=== PATIENT | female | born 1960 | race Caucasian/White ===

== ENCOUNTER 2018-03-28 09:28 | Outpatient (CLI) | payer MEDICARE | END 2018-03-28 09:29 | disposition home or self-care (01) | LOC: BICMAMMO 09:28 | PROVIDERS: ATTEND Internal Medicine | DX: Z12.31 Encounter for screening mammogram for malignant neoplasm of breast (principal); N64.89 Other specified disorders of breast | CPT/HCPCS: 77063; 77067 ==

== ENCOUNTER 2018-04-02 12:24 | Outpatient (CLI) | payer MEDICARE | END 2018-04-02 12:25 | disposition home or self-care (01) | LOC: BICMAMMO 12:24 | PROVIDERS: ATTEND Internal Medicine | DX: R92.2 Inconclusive mammogram (principal) | CPT/HCPCS: 76642; 77065; G0279 ==

== ENCOUNTER 2018-09-10 10:54 | Outpatient (CLI) | payer MEDICARE ==
--- NOTE | 2018-09-10 12:58 | RAD ---
CERVICAL SPINE THREE VIEWS: HISTORY: Neck pain. FINDINGS: Vertebral body heights are maintained. There is minimal degenerative spondylolisthesis at the C3-C4 level. There is disk space narrowing and osteophytosis, most pronounced at the C5-C6 and C6-C7 level s. The cervicothoracic junction is intact. No acute fracture or dislocation. IMPRESSION: Degenerative changes of the cervical spine. No acute osseous abnormalities are demonstrated. POS: JAVIER
== END 2018-09-10 10:55 | disposition home or self-care (01) ==
LOC: BICRAD 10:54
PROVIDERS: ATTEND Internal Medicine
DX: M47.22 Other spondylosis with radiculopathy, cervical region (principal)
CPT/HCPCS: 72040

== ENCOUNTER 2018-09-22 08:09 | Outpatient (CLI) | payer MEDICARE ==
--- NOTE | 2018-09-22 11:02 | MRI ---
MRI CERVICAL SPINE: Date: 09-22-18 Provided Clinical History: Cervical radiculopathy. FINDINGS: There is a slight anterolisthesis of C7 on T1. Cervical alignment appears otherwise normal. Vertebral body heights appear preserved. No focal concerning regional marrow signal abnormality is evident. Th e visualized posterior fossa, cervical medullary junction and cervical spinal cord demonstrate normal signal and morphology. C2-3: There is no significant central canal or foraminal narrowing apparent. C3-4: There is no significant central canal or foraminal narrowing apparent. C4-5: Mild disc degenerative changes with bilateral uncinate process hypertrophy. Mild bilateral fora amari narrowing. No significant central canal stenosis apparent. C5-6: There is disc space height loss and endplate degenerative change with a broad based disc osteop hyte complex. There is effacement of the ventral subarachnoid space without cord contact or deformity . There is at least moderate left foraminal narrowing. There is mild right foraminal narrowing. C6-7: There is disc space height loss and endplate degenerative change with a broad based disc osteop hyte complex. There is effacement of the ventral subarachnoid space without cord contact or deformity . There is a mild/moderate bilateral foraminal narrowing. C7-T1: There is broad based disc osteophyte complex and bilateral uncinate process hypertrophy. There is no significant central canal stenosis apparent. There is bilateral foraminal narrowing. There is bilateral facet arthritis. IMPRESSION: Cervical degenerative changes producing primarily foraminal narrowing as above. POS: TPC
== END 2018-09-22 08:10 | disposition home or self-care (01) ==
LOC: BICMRI 08:09
PROVIDERS: ATTEND Internal Medicine
DX: M47.22 Other spondylosis with radiculopathy, cervical region (principal); M48.02 Spinal stenosis, cervical region
CPT/HCPCS: 72141

== ENCOUNTER 2018-10-13 13:39 | Outpatient (CLI) | payer MEDICARE | END 2018-10-13 13:40 | disposition home or self-care (01) | LOC: BICMAMMO 13:39 | PROVIDERS: ATTEND Internal Medicine | DX: R92.8 Other abnormal and inconclusive findings on diagnostic imaging of breast (principal); R92.1 Mammographic calcification found on diagnostic imaging of breast | CPT/HCPCS: 77066; G0279 ==

== ENCOUNTER 2018-10-20 07:23 | Outpatient (CLI) | payer MEDICARE ==
--- NOTE | 2018-10-20 09:17 | MRI ---
NONCONTRAST MRI LUMBAR SPINE: Date: 10/20/18 HISTORY: Lumbar radiculopathy, low back pain which extends into bilateral lower extremities. Symptoms have bee n present for 2 months. FINDINGS: Visualized retroperitoneal structures demonstrate a normal MRI appearance. Conus medullaris is normal in appearance and terminates at the level of the L1 vertebral body. There is an oval-shaped area of increased T1 and T2-weighted signal intensity focus within the L5 mia tebral body, which has characteristics most compatible with a small hemangioma. A few minimal end reyes te degenerative changes are seen in the lower thoracic and upper lumbar spine. There is a focus of mild increased signal intensity within the left L5 pedicle. T12-L1 Level: There is a mild disc osteophyte complex which slightly effaces the ventral subarachnoi d space without significant narrowing of the central spinal canal. The neural foramina are patent. L1-2 Level: There is mild disc osteophyte complex with only slight effacement of the ventral aspect of the thecal sac. Neural foramina are patent. Mild right-sided facet hypertrophic changes are noted. L2-3 Level: There is a broad based disc osteophyte complex and mild facet degenerative changes. The re is mild narrowing of the central spinal canal. The neural foramina are patent. L3-4 Level: There is mild disc osteophyte complex present with mild facet degenerative changes. No s ignificant narrowing of the central spinal canal. The neural foramina are patent. L4-5 Level: There is a mild broad based disc osteophyte complex. There are moderate facet hypertroph ic changes present. There is no significant narrowing of the central spinal canal. There is mild righ t-sided neural foraminal narrowing. The left neural foramen is patent. L5-S1 Level: There is mild disc osteophyte complex present. There are moderate facet hypertrophic ch anges present with fluid signal intensity seen in the right-sided facet join. There is no significant narrowing of the central spinal canal, and the neural foramina are patent. IMPRESSION: 1. Mild degenerative changes in the lumbar spine. 2. Focus of edema within the region of the left pedicle of L5. However, there are prominent facet de generative changes at this level, and this is likely reactive in origin. POS: CELIA
== END 2018-10-20 07:24 | disposition home or self-care (01) ==
LOC: BICMRI 07:23
PROVIDERS: ATTEND Specialist
DX: M47.26 Other spondylosis with radiculopathy, lumbar region (principal)
CPT/HCPCS: 72148

== ENCOUNTER 2019-01-23 14:00 | Outpatient (CLI) | payer MEDICARE ==
[~2019-01-23 14:00] MED LIST: Gadobenate Dimeglumine 529 MG/1 ML (20ML VIAL) ONE
--- NOTE | 2019-01-23 17:06 | MRI ---
MRI Brain W WO Con: 01/23/2019 12:00 AM CLINICAL HISTORY: Left hand tremor. COMPARISON: None. FINDINGS: Extra axial spaces: Normal in size and morphology for the patient's age. Acute infarction: None. Ventricular system: Normal in size and morphology for the patient's age. Basal cisterns: Normal. Cerebral parenchyma: Microvascular ischemic changes. Midline shift: None. Cerebellum: Normal. Brainstem: Normal. Paranasal sinuses:Clear Intraaxial Enhancement: None IMPRESSION: No acute intracranial abnormality. Mild chronic ischemic disease in cerebral white matter.
== END 2019-01-23 14:01 | disposition home or self-care (01) ==
LOC: BICMRI 14:00
PROVIDERS: ATTEND Internal Medicine
DX: R25.1 Tremor, unspecified (principal); R90.82 White matter disease, unspecified
CPT/HCPCS: 70553; A9577

== ENCOUNTER 2020-01-01 08:52 | Outpatient (CLI) | payer MEDICARE ==
--- NOTE | 2020-01-01 09:13 | RAD ---
Exam:3 views left foot HISTORY: Pain. Swelling to the second and third metatarsal. COMPARISON: None FINDINGS: Solitary screw is noted at the level of the distal first metatarsal. No perihardware lucenc y. No fracture, cortical irregularity or periosteal reaction. Lisfranc alignment is maintained. Preserved joint spaces. There is soft tissue swelling. IMPRESSION: Soft tissue swelling. Correlate for cellulitis.
== END 2020-01-01 08:53 | disposition home or self-care (01) ==
LOC: BICRAD 08:52
PROVIDERS: ATTEND Internal Medicine
DX: M79.672 Pain in left foot (principal); M79.89 Other specified soft tissue disorders; N28.9 Disorder of kidney and ureter, unspecified
CPT/HCPCS: 36415; 80048

== ENCOUNTER 2020-01-22 11:39 | Outpatient (CLI) | payer MEDICARE ==
--- NOTE | 2020-01-22 12:27 | ULT ---
Renal sonogram HISTORY: Chronic renal insufficiency. FINDINGS: Right kidney is 10.6 cm length. No hydronephrosis evident. Left kidney is 11.2 cm. Cyst near the supe rior pole is 1.9 cm. No hydronephrosis. Urinary bladder has normal appearance. Liver partially visualized and is hyperechoic. IMPRESSION: No evidence of urinary tract obstruction. Hepato-steatosis.
== END 2020-01-22 11:40 | disposition home or self-care (01) ==
LOC: BICULT 11:39
PROVIDERS: ATTEND Internal Medicine
DX: N18.3 Chronic kidney disease, stage 3 (moderate) (principal); K76.0 Fatty (change of) liver, not elsewhere classified
CPT/HCPCS: 76770; 81001; 87077; 87086

== ENCOUNTER 2020-03-29 10:01 | Outpatient (CLI) | payer MEDICARE ==
--- NOTE | 2020-03-29 11:12 | RAD ---
Lumbar spine: 3 lateral views obtained with neutral flexion and extension. INDICATIONS:Low back pain COMPARISON:None FINDINGS: Vertebral bodies maintain normal height. Degenerative spurring from the lumbar vertebra. Mild loss of disc space at all levels. Slight anterolisthesis at L5-S1. Facet hypertrophy. No evidence of spondylolysis. Anterolisthesis at L5-S1 mildly corrects with extension. No soft tissue abnormality. IMPRESSION: Degenerative changes as described. Spondylolisthesis at L5-S1.
--- NOTE | 2020-03-29 11:53 | MRI ---
LUMBAR SPINE MRI WITHOUT IV CONTRAST: HISTORY: Lumbar radiculopathy, low back pain, and left leg pain. COMPARISON: 10/20/2018. FINDINGS: Multiplanar multisequence MRI examination of the lumbar spine is performed. There is slight fullness of the right upper renal pelvis and right ureter, nonspecific. Conus medullaris region appears unre markable. Generalized disk desiccation changes and ligament and facet hypertrophic changes. T12-L1 disk: Minimal diffuse bulging with slight thinning of the ventral thecal sac without signific ant lateral recess or foraminal stenosis. L1-L2 disk: Minimal focal left posterolateral protrusion changes with slight narrowing of the left f oramen and there is slight narrowing of the right ventral lateral recess region. L2-L3 disk: Disk bulging changes with some minimal left foraminal stenosis. L3-L4 disk: Mild bulging without significant stenosis. L4-L5 disk: Mild disk bulging without evidence for significant stenosis. L5-S1 disk: Mild disk bulging with mild to moderate foraminal narrowing. IMPRESSION: Mostly mild multilevel variable severity stenotic changes including the lateral recess and foraminal regions. Facet arthrosis, sever, at L5-S1. Previously noted reactive marrow edema involving the left pedicle of L5 is resolved. POS: OFF
== END 2020-03-29 10:02 | disposition home or self-care (01) ==
LOC: TBSIIMAG 10:01
PROVIDERS: ATTEND Nurse Practitioner Family
DX: M47.26 Other spondylosis with radiculopathy, lumbar region (principal); M43.16 Spondylolisthesis, lumbar region; M47.27 Other spondylosis with radiculopathy, lumbosacral region
CPT/HCPCS: 72100; 72148

== ENCOUNTER 2020-05-26 09:12 | Outpatient (CLI) | payer MEDICARE ==
--- NOTE | 2020-05-26 10:18 | MMO ---
Bilateral MAMMO Bilat Screen [facility]. CLINICAL HISTORY: Patient is 60 years old and is seen for screening. The patient has no family history of breast cancer. The patient has no personal history of cancer. VIEWS: The views performed were: bilateral craniocaudal with tomosynthesis and bilateral mediolateral oblique with tomosynthesis. FILMS COMPARED: The present examination has been compared to prior imaging studies performed at [facility] on 03/28/2018, 04/02/2018 and 10/13/2018. This study has been interpreted with the assistance of computer-aided detection. MAMMOGRAM FINDINGS: There are scattered fibroglandular densities. There are stable benign appearing calcifications seen in both breasts. There are no suspicious masses, suspicious calcifications, or new areas of architectural distortion. IMPRESSION: THERE IS NO MAMMOGRAPHIC EVIDENCE OF MALIGNANCY. A ROUTINE FOLLOW-UP MAMMOGRAM IN 1 YEAR IS RECOMMENDED. THE RESULTS OF THIS EXAM WERE SENT TO THE PATIENT. ACR BI-RADS Category 2 - Benign finding MAMMOGRAPHY NOTE: 1. A negative mammogram report should not delay a biopsy if a dominant of clinically suspicious mass is present. 2. Approximately 10% to 15% of breast cancers are not detected by mammography. 3. Adenosis and dense breasts may obscure an underlying neoplasm. Reported by: MYCHAL PICKARD MD Electonically Signed: [id number]
== END 2020-05-26 09:13 | disposition home or self-care (01) ==
LOC: BICMAMMO 09:12
PROVIDERS: ATTEND Internal Medicine
DX: Z12.31 Encounter for screening mammogram for malignant neoplasm of breast (principal)
CPT/HCPCS: 77063; 77067

== ENCOUNTER 2020-07-27 08:22 | Outpatient (CLI) | payer MEDICARE ==
--- NOTE | 2020-07-27 09:23 | ULT ---
GALLBLADDER ULTRASOUND: Date: 07/27/2020 INDICATION: Transaminitis. Abdominal pain. FINDINGS: The patient is status post cholecystectomy. The liver is mildly echogenic suggesting mild fatty infiltration. No focal liver mass identified. Pancreas is mostly obscured, but unremarkable as visualized. Mild prominence of the intra and extrahepatic biliary ducts, probably on the basis of post cholecyste ctomy status. The common bile duct measures 1.0 cm. Right kidney is imaged and appears unremarkable. IMPRESSION: 1. Mild hepatic steatosis. 2. Post cholecystectomy with mild prominence of the biliary ducts. POS: AGW
== END 2020-07-27 08:23 | disposition home or self-care (01) ==
LOC: BICULT 08:22
PROVIDERS: ATTEND Internal Medicine
DX: R74.01 Elevation of levels of liver transaminase levels (principal); K76.0 Fatty (change of) liver, not elsewhere classified; Z90.49 Acquired absence of other specified parts of digestive tract
CPT/HCPCS: 76705

== ENCOUNTER 2020-09-16 12:16 | Outpatient (CLI) | payer MEDICARE ==
--- NOTE | 2020-09-16 13:34 | MRI ---
EXAM: MRI lumbar spine without contrast HISTORY: Back pain and radiculopathy COMPARISON: 03/29/2020 TECHNIQUE: Multiple planar multisequence MR images were obtained of the lumbar spine without contrast . FINDINGS: Generalized disc desiccation is seen. The vertebral bodies and intervertebral discs demonstrate finesse l height and alignment without fracture or subluxation. There is mild right hydronephrosis and hydroureter. There appears to be distention of the urinary sebastian dder. There is a well-circumscribed focus of high T1 and T2 signal in the L5 vertebral body which likely re presents a hemangioma. There is edema in the right paraspinal musculature in the lower lumbosacral spine. A small amount of edema is seen in the right L5 pedicle. This is new compared to the prior exa mination and may be secondary to a facet injection. The conus medullaris terminates normally at L1. T12/L1: There is a small disc osteophyte complex. No posterior facet arthrosis. No central canal st enosis. No neural foraminal stenosis L1/2: No significant posterior bulge or protrusion. Mild bilateral posterior facet arthrosis. No ce ntral canal stenosis. No neural foraminal stenosis L2/3: There is a small disc osteophyte complex. Mild bilateral posterior facet arthrosis. No centra l canal stenosis. Mild bilateral neural foraminal stenosis L3/4: There is a small disc osteophyte complex. Mild bilateral posterior facet arthrosis. Mild cent ral canal stenosis. Mild bilateral neural foraminal stenosis L4/5: No significant posterior bulge or protrusion. Moderate to severe bilateral posterior facet art hrosis. No central canal stenosis. Mild bilateral neural foraminal stenosis L5/S1: There is a small disc osteophyte complex. Severe bilateral posterior facet arthrosis. Modera te central canal stenosis. Moderate bilateral neural foraminal stenosis IMPRESSION: 1. Degenerative changes of the lumbar spine as above 2. Right-sided hydronephrosis with enlargement of the urinary bladder may be secondary to vesicourete ral reflux.
== END 2020-09-16 12:17 | disposition home or self-care (01) ==
LOC: TBSIIMAG 12:16
PROVIDERS: ATTEND Nurse Practitioner Family
DX: M47.26 Other spondylosis with radiculopathy, lumbar region (principal); N13.30 Unspecified hydronephrosis; N32.89 Other specified disorders of bladder
CPT/HCPCS: 72148

== ENCOUNTER 2020-12-08 11:37 | Outpatient (CLI) | payer MEDICARE ==
[2020-12-08 15:10] LABS: Anion Gap 17 mmol/L (10-20); BUN (Urea Nitrogen) 13 mg/dL (9.8-20.1); Calc. Creatinine Clearance 0 mL/min (70-130); Calcium 9.8 mg/dL (7.8-10.44); Carbon Dioxide 28 mmol/L (23-31); Chloride 97 mmol/L (98-107); Glucose 87 mg/dL (80-115); Potassium 4.4 mmol/L (3.5-5.1); Sodium 138 mmol/L (136-145)
[2020-12-08 15:13] LABS: Hemoglobin 12.1 g/dL (12.0-15.5); Mean Corpuscular HGB CONC 31.3 g/dL (32.0-36.0); Mean Corpuscular Hemoglobin 26.5 pg (27.0-33.0); Mean Corpuscular Volume 84.7 fl (81.6-98.3); Mean Platelet Volume 9.5 fl (7.4-10.4); Platelet Count 311 10x3/uL (150-450); RBC Distribution Width 16.6 % (11.5-14.5); Red Blood Cell (RBC) Count 4.57 10x6/uL (3.90-5.03); White Blood Cell (WBC) Count 10.5 10x3/uL (3.5-10.5)
[2020-12-08 15:26] LABS: PTT 26.2 sec (22.0-33.0)
[2020-12-09 01:53] LABS: SARS-CoV-2 PCR by NAA Not Detected (NotDetected)
== END 2020-12-08 11:38 | disposition home or self-care (01) ==
LOC: LABBT 11:37
PROVIDERS: ATTEND Surgery
DX: Z01.818 Encounter for other preprocedural examination (principal); M54.16 Radiculopathy, lumbar region; M71.38 Other bursal cyst, other site; Z20.822 Contact with and (suspected) exposure to COVID-19
CPT/HCPCS: 80048; 85027; 85610; 85730; 93005; U0003; U0005; 87635; 93010

== ENCOUNTER 2020-12-13 08:14 | Day surgery (SDC) | payer MEDICARE ==
[2020-12-09 14:25] VITALS: BMI 47.8
[2020-12-13] MEDS ORDERED: Fentanyl 100 MCG/2 ML VIAL ONE ×4 (09:33→15:56)
[2020-12-13] MEDS ORDERED: Midazolam HCl 2 mg/2 ml Vial ONE (09:33)
[2020-12-13] MEDS ORDERED: Thrombin 5000 UNITS/5 ML VIAL ONE (10:04)
[2020-12-13] MEDS ORDERED: Fentanyl 250 MCG/5 ML VIAL ONE (10:14)
[2020-12-13] MEDS ORDERED: Dexmedetomidine 200 MCG/2 ML VIAL ONE (10:14)
[2020-12-13] MEDS ORDERED: Milk Of Magnesia 30 ML UDCUP PO PRN (10:25)
[2020-12-13] MEDS ORDERED: tiZANidine HCl 4 MG TAB PO PRN (10:25)
[2020-12-13] MEDS ORDERED: Acetaminophen 325 MG TAB PO PRN (10:25)
[2020-12-13] MEDS ORDERED: Mag-Al 1200 mg/1200 mg/30 ML UDCUP PO PRN (10:25)
[2020-12-13] MEDS ORDERED: traMADol HCl 50 MG TAB PO PRN (10:25)
[2020-12-13] MEDS ORDERED: Morphine 2 MG/ML VIAL SLOW IVP PRN (10:25)
[2020-12-13] MEDS ORDERED: Bisacodyl 10 MG SUPP PR PRN (10:25)
[2020-12-13] MEDS ORDERED: Labetalol HCl 100 MG/20 ML VIAL ONE (10:31)
[2020-12-13] MEDS ORDERED: Lidocaine 1% PF 5 ML VIAL ONE (10:31)
[2020-12-13] MEDS ORDERED: Rocuronium Bromide 10 MG/ML (10ML VIAL) ONE (10:31)
[2020-12-13] MEDS ORDERED: Dexamethasone 20 MG/5 ML VIAL ONE (10:31)
[2020-12-13] MEDS ORDERED: PROPOFOL 200 MG/20 ML VIAL ONE (10:31)
[2020-12-13] MEDS ORDERED: Ketorolac Tromethamine 30 MG/ML VIAL ONE (10:31)
[2020-12-13] MEDS ORDERED: Ondansetron PF 4 MG/2 ML Vial ONE (10:31)
[2020-12-13] MEDS ORDERED: Non-Formulary Item 1 EACH (Hydrochlorothiazide [Hydrochlorothiazide] 12.5 MG Capsule) PO SCH (11:00)
[2020-12-13] MEDS ORDERED: SUGAMMADEX SODIUM 200 MG/2 ML VIAL ONE (12:34)
[2020-12-13] MEDS ORDERED: Non-Formulary Item 1 EACH (Mesalamine [Mesalamine] 1.2 GM Tablet.Dr) PO SCH (13:00)
[2020-12-13] MEDS ORDERED: HYDROmorphone 2 MG/ML VIAL SLOW IVP PRN (13:03)
[2020-12-13] MEDS ORDERED: PACU-Morphine 4MG/ML VIAL SLOW IVP PRN (13:03)
[2020-12-13] MEDS ORDERED: Promethazine HCl 25 MG/ML VIAL IM PRN (13:03)
[2020-12-13] MEDS ORDERED: Morphine Sulfate 2 MG/ML SYRINGE SLOW IVP PRN (13:03)
[2020-12-13] MEDS ORDERED: Ondansetron HCl/PF 4 MG/2 ML Vial IVP PRN (13:03)
[2020-12-13] MEDS ORDERED: Promethazine HCl 25 MG/ML VIAL SLOW IVP PRN (13:03)
[2020-12-13] MEDS ORDERED: Non-Formulary Item 1 EACH (Pregabalin [Pregabalin] 100 MG Capsule) PO SCH (15:00)
[2020-12-13] MEDS: Hydrochlorothiazide 25 MG TAB PO SCH ×4 (16:45→19:30)
[2020-12-13] MEDS: Mesalamine DR 400 mg Capsule PO SCH ×3 (16:45→21:13)
[2020-12-13] MEDS: Pregabalin 50 MG CAP PO SCH ×2 (16:46→21:14)
[2020-12-13] MEDS: CEFAZOLIN 2 GM in Premix Bag 1 BAG IVPB SCH ×2 (17:00→18:27)
[2020-12-13] MEDS: HYDROcodone/Acetaminophen 7.5/325 mg Tablet PO PRN (18:45)
[2020-12-13] MEDS: Sodium Chloride 0.9% 1,000 ML IV SCH (18:48)
[2020-12-13] MEDS ORDERED: ZOLPIDEM TARTRATE 6.25 MG PO SCH (21:00)
[2020-12-13] MEDS ORDERED: Zolpidem Tartrate 5 MG TAB PO SCH (21:00)
[2020-12-13] MEDS: Citalopram 20 MG TAB PO SCH (21:12)
[2020-12-13] MEDS: Acetaminophen/Codeine 30-300mg Tablet PO PRN (21:15)
[2020-12-14] MEDS: CEFAZOLIN 2 GM in Premix Bag 1 BAG IVPB SCH (00:17)
[2020-12-14] MEDS: HYDROcodone/Acetaminophen 7.5/325 mg Tablet PO PRN (02:07)
[2020-12-14] MEDS: Pregabalin 50 MG CAP PO SCH (08:00)
[2020-12-14] MEDS: Citalopram 20 MG TAB PO SCH (08:00)
[2020-12-14 08:02] VITALS: BP 116/78; TEMP 98.1
[2020-12-14] MEDS: Hydrochlorothiazide 25 MG TAB PO SCH (08:02)
[2020-12-14] MEDS: Sodium Chloride 0.9% 1,000 ML IV SCH (08:09)
[2020-12-14] MEDS ORDERED: clonazePAM 0.5 MG TAB PO SCH ×2 (09:00)
[2020-12-14] MEDS ORDERED: Atorvastatin Calcium 10 MG TAB PO SCH (09:00)
[2020-12-14] MEDS ORDERED: Non-Formulary Item 1 EACH (Mecobalamin [B12 Active] 1,000 MCG Tab.Chew) PO SCH (09:00)
[2020-12-14] MEDS ORDERED: Aripiprazole 15 MG TAB PO SCH ×2 (09:00)
[2020-12-14] MEDS ORDERED: Lisinopril 10 MG TAB PO SCH (09:00)
[2020-12-14] MEDS ORDERED: Calcium Carbonate 600 MG TAB PO SCH (09:00)
[2020-12-14] MEDS ORDERED: COSAMIN DS PO SCH (09:00)
[2020-12-14] MEDS ORDERED: Cyanocobalamin (Vitamin B-12) 1,000 MCG TAB PO SCH (09:00)
[2020-12-14] MEDS: Mesalamine DR 400 mg Capsule PO SCH (09:43)
[2020-12-14] MEDS: Acetaminophen/Codeine 30-300mg Tablet PO PRN (11:51)
== END 2020-12-14 12:30 | disposition home or self-care (01) ==
LOC: SDC 08:14 → T4-A 10:25 → SDC 12-14 12:30
PROVIDERS: ATTEND Surgery
PROC: 0QB00ZZ Excision of Lumbar Vertebra, Open Approach (ICD-10-PCS; principal; 2020-12-13)
DX: M71.38 Other bursal cyst, other site (principal); M54.18 Radiculopathy, sacral and sacrococcygeal region; I10 Essential (primary) hypertension; E78.5 Hyperlipidemia, unspecified; E66.9 Obesity, unspecified; Z68.42 Body mass index [BMI] 45.0-49.9, adult; Z79.899 Other long term (current) drug therapy
CPT/HCPCS: 76000; J0690; J1100; J1885; J2250; J2405; J2704; J3010; J3370

== ENCOUNTER 2021-01-20 16:46 | Outpatient (CLI) | payer MEDICARE | END 2021-01-20 16:47 | disposition home or self-care (01) | LOC: ULT 16:46 | PROVIDERS: ATTEND Surgery | DX: R60.0 Localized edema (principal) | CPT/HCPCS: 93970 ==

== ENCOUNTER 2021-05-15 09:33 | Outpatient (CLI) | payer MEDICARE ==
[2021-05-15] MEDS ORDERED: Magnevist 469MG/ML 20 ML VIAL ONE (12:13)
== END 2021-05-15 09:34 | disposition home or self-care (01) ==
LOC: BICMRI 09:33
PROVIDERS: ATTEND Specialist
DX: M51.16 Intervertebral disc disorders with radiculopathy, lumbar region (principal); M48.061 Spinal stenosis, lumbar region without neurogenic claudication; M48.07 Spinal stenosis, lumbosacral region; M48.05 Spinal stenosis, thoracolumbar region; M51.87 Other intervertebral disc disorders, lumbosacral region; M51.85 Other intervertebral disc disorders, thoracolumbar region; M96.1 Postlaminectomy syndrome, not elsewhere classified; R60.0 Localized edema
CPT/HCPCS: 72158; 82565; A9579

== ENCOUNTER 2021-06-08 10:57 | Outpatient (CLI) | payer MEDICARE | END 2021-06-08 10:58 | disposition home or self-care (01) | LOC: BICULT 10:57 | PROVIDERS: ATTEND Internal Medicine | DX: N28.89 Other specified disorders of kidney and ureter (principal); K76.0 Fatty (change of) liver, not elsewhere classified; R30.0 Dysuria | CPT/HCPCS: 76770; 81001; 87086 ==

== ENCOUNTER 2021-06-13 10:01 | Outpatient (CLI) | payer MEDICARE | END 2021-06-13 10:02 | disposition home or self-care (01) | LOC: BICMAMMO 10:01 | PROVIDERS: ATTEND Internal Medicine | DX: Z12.31 Encounter for screening mammogram for malignant neoplasm of breast (principal) | CPT/HCPCS: 77063; 77067 ==

== ENCOUNTER 2021-07-18 12:32 | Outpatient (CLI) | payer MEDICARE | END 2021-07-18 12:33 | disposition home or self-care (01) | LOC: BICCT 12:32 | PROVIDERS: ATTEND Internal Medicine | DX: R35.0 Frequency of micturition (principal) | CPT/HCPCS: 74178; 82565 ==

== ENCOUNTER 2021-08-17 11:33 | Outpatient (CLI) | payer MEDICARE ==
[2021-08-17 22:43] LABS: SARS-CoV-2 PCR by NAA Not Detected (NotDetected)
== END 2021-08-17 11:34 | disposition home or self-care (01) ==
LOC: LABBT 11:33
PROVIDERS: ATTEND Internal Medicine
DX: Z01.812 Encounter for preprocedural laboratory examination (principal); K50.90 Crohn's disease, unspecified, without complications; K21.9 Gastro-esophageal reflux disease without esophagitis; D64.9 Anemia, unspecified; R19.7 Diarrhea, unspecified; Z20.822 Contact with and (suspected) exposure to COVID-19
CPT/HCPCS: U0003; U0005

== ENCOUNTER 2021-08-22 06:31 | Day surgery (SDC) | payer MEDICARE ==
[2021-08-16 09:47] VITALS: BMI 46.0
[2021-08-22] MEDS ORDERED: Lidocaine 1% PF 5 ML VIAL ONE (09:05)
[2021-08-22] MEDS ORDERED: PROPOFOL 200 MG/20 ML VIAL ONE (09:05)
== END 2021-08-22 10:23 | disposition home or self-care (01) ==
LOC: SDC 06:31
PROVIDERS: ATTEND Internal Medicine
PROC: 0DB78ZX Excision of Stomach, Pylorus, Via Natural or Artificial Opening Endoscopic, Diagnostic (ICD-10-PCS; principal; 2021-08-22)
PROC: 0DBP8ZX Excision of Rectum, Via Natural or Artificial Opening Endoscopic, Diagnostic (ICD-10-PCS; 2021-08-22)
DX: K62.89 Other specified diseases of anus and rectum (principal); D17.5 Benign lipomatous neoplasm of intra-abdominal organs; K57.30 Diverticulosis of large intestine without perforation or abscess without bleeding; K29.70 Gastritis, unspecified, without bleeding; K25.9 Gastric ulcer, unspecified as acute or chronic, without hemorrhage or perforation; K50.90 Crohn's disease, unspecified, without complications; K21.9 Gastro-esophageal reflux disease without esophagitis; Z86.010 Personal history of colon polyps; Z79.899 Other long term (current) drug therapy
CPT/HCPCS: 88305; 88312; J2704

== ENCOUNTER 2021-09-19 10:40 | Outpatient (CLI) | payer MEDICARE | END 2021-09-19 10:41 | disposition home or self-care (01) | LOC: BICRAD 10:40 | PROVIDERS: ATTEND Internal Medicine | DX: M54.50 Low back pain, unspecified (principal); M54.6 Pain in thoracic spine; M47.816 Spondylosis without myelopathy or radiculopathy, lumbar region; M47.814 Spondylosis without myelopathy or radiculopathy, thoracic region; N18.31 Chronic kidney disease, stage 3a; D72.829 Elevated white blood cell count, unspecified | CPT/HCPCS: 36415; 72072; 72100; 80053; 85025 ==

== ENCOUNTER 2021-10-02 10:09 | Outpatient (CLI) | payer MEDICARE | END 2021-10-02 10:10 | disposition home or self-care (01) | LOC: BICRAD 10:09 | PROVIDERS: ATTEND Specialist | DX: M47.26 Other spondylosis with radiculopathy, lumbar region (principal); M43.16 Spondylolisthesis, lumbar region | CPT/HCPCS: 72110 ==

== ENCOUNTER 2021-12-25 16:54 | Outpatient (CLI) | payer MEDICARE ==
[2021-12-25 17:48] LABS: #Eosinphils 0.3 10x3/uL (0.0-0.5); #Monocytes 0.6 10x3/uL (0.0-1.1); #Neutrophils 5.8 10x3/uL (1.5-8.4); %Basophils 0.4 % (0.0-2.0); %Eosinophils 3.2 % (0.0-6.0); %Lymphocytes 28.4 % (18.0-47.0); %Neutrophils 61.5 % (40.0-75.0); Hemoglobin 12.1 g/dL (12.0-15.5); Mean Corpuscular HGB CONC 31.8 g/dL (32.0-36.0); Mean Corpuscular Hemoglobin 27.1 pg (27.0-33.0); Mean Corpuscular Volume 85.2 fl (81.6-98.3); Mean Platelet Volume 9.5 fl (7.4-10.4); Platelet Count 324 10x3/uL (150-450); RBC Distribution Width 15.8 % (11.5-14.5); Red Blood Cell (RBC) Count 4.47 10x6/uL (3.90-5.03); White Blood Cell (WBC) Count 9.5 10x3/uL (3.5-10.5)
[2021-12-25 18:13] LABS: ALT (SGPT) 18 U/L (8-55); AST (SGOT) 17 U/L (5-34); Albumin 4.1 g/dL (3.4-4.8); Alkaline Phosphatase 116 U/L (40-110); Anion Gap 14 mmol/L (10-20); BUN (Urea Nitrogen) 13 mg/dL (9.8-20.1); Bilirubin, Total 0.3 mg/dL (0.2-1.2); Calc. Creatinine Clearance 0 mL/min (70-130); Calcium 9.1 mg/dL (7.8-10.44); Carbon Dioxide 26 mmol/L (23-31); Chloride 102 mmol/L (98-107); Globulin 2.9 g/dL (2.4-3.5); Glucose 137 mg/dL (80-115); Potassium 3.6 mmol/L (3.5-5.1); Sodium 138 mmol/L (136-145)
[2021-12-26 00:14] LABS: SARS-CoV-2 PCR by NAA Not Detected (NotDetected)
== END 2021-12-25 16:55 | disposition home or self-care (01) ==
LOC: LABBT 16:54
PROVIDERS: ATTEND Internal Medicine Cardiovascular Disease
DX: Z01.812 Encounter for preprocedural laboratory examination (principal); Z20.822 Contact with and (suspected) exposure to COVID-19
CPT/HCPCS: 80053; 85025; U0003; U0005

== ENCOUNTER 2021-12-29 05:54 | Day surgery (SDC) | payer MEDICARE ==
[2021-12-26 16:19] VITALS: BMI 48.9
[2021-12-29] MEDS ORDERED: Lidocaine 1% (PF) 30 ML VIAL ONE (07:53)
[2021-12-29] MEDS ORDERED: Midazolam HCl 2 mg/2 ml Vial ONE (08:37)
[2021-12-29] MEDS ORDERED: Fentanyl 100 MCG/2 ML VIAL ONE (08:37)
[2021-12-29] MEDS ORDERED: Iopamidol 370 76% 100 ML VIAL ONE (09:23)
[2021-12-29] MEDS ORDERED: Acetaminophen/Codeine 30-300mg Tablet ONE (11:03)
== END 2021-12-29 14:49 | disposition home or self-care (01) ==
LOC: SDC 05:54
PROVIDERS: ATTEND Internal Medicine Cardiovascular Disease
PROC: 4A023N7 Measurement of Cardiac Sampling and Pressure, Left Heart, Percutaneous Approach (ICD-10-PCS; principal; 2021-12-29)
PROC: B2111ZZ Fluoroscopy of Multiple Coronary Arteries using Low Osmolar Contrast (ICD-10-PCS; 2021-12-29)
DX: R94.39 Abnormal result of other cardiovascular function study (principal); R07.2 Precordial pain; I25.10 Atherosclerotic heart disease of native coronary artery without angina pectoris; I12.9 Hypertensive chronic kidney disease with stage 1 through stage 4 chronic kidney disease, or unspecified chronic kidney disease; N18.31 Chronic kidney disease, stage 3a; E78.2 Mixed hyperlipidemia; K21.9 Gastro-esophageal reflux disease without esophagitis; Z79.82 Long term (current) use of aspirin; Z79.899 Other long term (current) drug therapy; Z88.1 Allergy status to other antibiotic agents
CPT/HCPCS: 93005; 93010; 93458; 99152; 99153; J2001; J2250; J3010; Q9967

== ENCOUNTER 2022-01-05 14:40 | Outpatient (CLI) | payer OTHER | END 2022-01-05 14:41 | disposition home or self-care (01) | LOC: BICCT 14:40 | PROVIDERS: ATTEND Internal Medicine Cardiovascular Disease | DX: R91.1 Solitary pulmonary nodule (principal); R91.8 Other nonspecific abnormal finding of lung field | CPT/HCPCS: 71250 ==

== ENCOUNTER 2022-04-02 11:35 | Outpatient (CLI) | payer OTHER ==
[2022-04-02 13:27] LABS: Hemoglobin 12.7 g/dL (12.0-15.5); Mean Corpuscular Hemoglobin 27.1 pg (27.0-33.0); Mean Corpuscular Volume 84.8 fl (81.6-98.3); Mean Platelet Volume 9.2 fl (7.4-10.4); Platelet Count 355 10x3/uL (150-450); RBC Distribution Width 16.3 % (11.5-14.5); Red Blood Cell (RBC) Count 4.68 10x6/uL (3.90-5.03)
[2022-04-02 13:43] LABS: Anion Gap 16 mmol/L (10-20); BUN (Urea Nitrogen) 21 mg/dL (9.8-20.1); Calc. Creatinine Clearance 0 mL/min (70-130); Carbon Dioxide 28 mmol/L (23-31); Chloride 99 mmol/L (98-107); Estimated GFR 67; Glucose 85 mg/dL (80-115); Potassium 4.6 mmol/L (3.5-5.1); Sodium 138 mmol/L (136-145)
== END 2022-04-02 11:36 | disposition home or self-care (01) ==
LOC: LABBT 11:35
PROVIDERS: ATTEND Specialist
DX: Z01.812 Encounter for preprocedural laboratory examination (principal); R94.39 Abnormal result of other cardiovascular function study
CPT/HCPCS: 80048; 85027

== ENCOUNTER 2022-04-05 09:25 | Day surgery (SDC) | payer OTHER ==
[2022-04-03 12:29] VITALS: BMI 44.8
[2022-04-05] MEDS ORDERED: EPINEPHrine 1 MG/ML AMP ONE (10:07)
[2022-04-05] MEDS ORDERED: Bupivacaine PF 0.5% 30 ML VIAL ONE (10:07)
[2022-04-05] MEDS ORDERED: CEFAZOLIN 2 GM VIAL ONE ×2 (10:39→10:58)
[2022-04-05] MEDS ORDERED: Lidocaine 1% MPF 2 ML VIAL ONE (10:39)
[2022-04-05] MEDS ORDERED: Sodium Chloride 0.9% 100 ML ONE ×2 (10:39→10:58)
[2022-04-05] MEDS ORDERED: Ketamine 50 MG/ML (10ML VIAL) ONE (10:51)
[2022-04-05] MEDS ORDERED: Midazolam HCl 2 mg/2 ml Vial ONE (10:51)
[2022-04-05] MEDS ORDERED: Propofol 500 MG/50 ML VIAL ONE ×2 (10:51→12:28)
[2022-04-05] MEDS ORDERED: fentaNYL Citrate/PF 100 MCG/2 ML SYRINGE ONE (10:51)
[2022-04-05] MEDS ORDERED: HYDROcodone/Acetaminophen 5/325 mg Tablet ONE (13:52)
== END 2022-04-05 14:32 | disposition home or self-care (01) ==
LOC: SDC 09:25
PROVIDERS: ATTEND Specialist
PROC: 0JH70DZ Insertion of Multiple Array Stimulator Generator into Back Subcutaneous Tissue and Fascia, Open Approach (ICD-10-PCS; principal; 2022-04-05)
PROC: 00HU3MZ Insertion of Neurostimulator Lead into Spinal Canal, Percutaneous Approach (ICD-10-PCS; 2022-04-05)
DX: M96.1 Postlaminectomy syndrome, not elsewhere classified (principal); G89.4 Chronic pain syndrome; M47.26 Other spondylosis with radiculopathy, lumbar region; M47.817 Spondylosis without myelopathy or radiculopathy, lumbosacral region; K21.9 Gastro-esophageal reflux disease without esophagitis; Z79.82 Long term (current) use of aspirin; Z79.899 Other long term (current) drug therapy; Z88.1 Allergy status to other antibiotic agents
CPT/HCPCS: 72020; 76000; C1713; C1778; C1820; J0171; J0690; J2250; J2704; J3370; J3490; S0020

== ENCOUNTER 2023-05-07 09:20 | Outpatient (CLI) | payer OTHER | END 2023-05-07 09:21 | disposition home or self-care (01) | LOC: BICMAMMO 09:20 | PROVIDERS: ATTEND Internal Medicine | DX: L98.9 Disorder of the skin and subcutaneous tissue, unspecified (principal) | CPT/HCPCS: 76642; 77066; G0279 ==

== ENCOUNTER 2023-07-29 11:04 | Outpatient (CLI) | payer OTHER | END 2023-07-29 11:05 | disposition home or self-care (01) | LOC: MRI 11:04 | PROVIDERS: ATTEND Internal Medicine | DX: M25.561 Pain in right knee (principal); S83.241A Other tear of medial meniscus, current injury, right knee, initial encounter; S83.281A Other tear of lateral meniscus, current injury, right knee, initial encounter; M17.11 Unilateral primary osteoarthritis, right knee ==

== ENCOUNTER 2023-09-13 08:48 | Outpatient (CLI) | payer OTHER ==
[2023-09-13 09:21] LABS: #Basophils 0.1 10x3/uL (0.0-0.2); #Eosinphils 0.3 10x3/uL (0.0-0.5); #Monocytes 0.8 10x3/uL (0.0-1.1); #Neutrophils 7.2 10x3/uL (1.5-8.4); %Basophils 0.5 % (0.0-2.0); %Eosinophils 3.1 % (0.0-6.0); %Monocytes 7.2 % (0.0-10.0); %Neutrophils 66.8 % (40.0-75.0); Hematocrit 41.7 % (34.9-44.5); Hemoglobin 13.4 g/dL (12.0-15.5); Mean Corpuscular HGB CONC 32.1 g/dL (32.0-36.0); Mean Corpuscular Hemoglobin 29.1 pg (27.0-33.0); Mean Corpuscular Volume 90.7 fl (81.6-98.3); Mean Platelet Volume 8.7 fl (7.4-10.4); Platelet Count 342 10x3/uL (150-450); RBC Distribution Width 15.2 % (11.5-14.5); White Blood Cell (WBC) Count 10.7 10x3/uL (3.5-10.5)
[2023-09-13 09:56] LABS: Anion Gap 15 mmol/L (10-20); BUN (Urea Nitrogen) 10 mg/dL (9.8-20.1); Calc. Creatinine Clearance 0 mL/min (70-130); Calcium 9.7 mg/dL (7.8-10.44); Carbon Dioxide 27 mmol/L (23-31); Chloride 103 mmol/L (98-107); Estimated GFR 68; Glucose 103 mg/dL (80-115); Potassium 4.4 mmol/L (3.5-5.1); Sodium 141 mmol/L (136-145)
== END 2023-09-13 08:49 | disposition home or self-care (01) ==
LOC: LABBT 08:48
PROVIDERS: ATTEND Orthopaedic Surgery
DX: Z01.812 Encounter for preprocedural laboratory examination (principal); S83.206A Unspecified tear of unspecified meniscus, current injury, right knee, initial encounter
CPT/HCPCS: 80048; 85025

== ENCOUNTER 2023-09-16 06:26 | Day surgery (SDC) | payer OTHER ==
[2023-09-13 09:13] VITALS: BMI 44.2
[2023-09-16] MEDS ORDERED: Lidocaine 2% PF 5 ML VIAL ONE (08:32)
[2023-09-16] MEDS ORDERED: Bupivacaine PF 0.5% 30 ML VIAL ONE (08:32)
[2023-09-16] MEDS ORDERED: PROPOFOL 20 ML ONE ×2 (08:32→09:45)
[2023-09-16] MEDS ORDERED: Bupivacaine HCl 0.5%/Epinephrine 1:200,000/PF 30 ml Vial ONE (09:30)
[2023-09-16] MEDS ORDERED: fentaNYL PF 100 MCG/2 ML SYRINGE ONE (09:45)
[2023-09-16] MEDS ORDERED: Lidocaine 1% PF 5 ML VIAL ONE (09:46)
[2023-09-16] MEDS ORDERED: Dexamethasone 20 MG/5 ML VIAL ONE (09:46)
[2023-09-16] MEDS ORDERED: Ondansetron PF 4 MG/2 ML Vial ONE (09:46)
[2023-09-16] MEDS ORDERED: Lidocaine 2% 6 ML (Jelly) SYR ONE (09:47)
[2023-09-16] MEDS ORDERED: Sodium Chloride 0.9% 100 ML ONE (09:52)
[2023-09-16] MEDS ORDERED: CEFAZOLIN 2 GM VIAL ONE (09:52)
[2023-09-16] MEDS ORDERED: fentaNYL 50 mcg/mL 1 mL Vial ONE (11:24)
== END 2023-09-16 13:39 | disposition home or self-care (01) ==
LOC: SDC 06:26
PROVIDERS: ATTEND Orthopaedic Surgery
PROC: 0SBC0ZZ Excision of Right Knee Joint, Open Approach (ICD-10-PCS; principal; 2023-09-16)
PROC: 0SBC0ZZ Excision of Right Knee Joint, Open Approach (ICD-10-PCS; 2023-09-16)
DX: S83.241A Other tear of medial meniscus, current injury, right knee, initial encounter (principal); S83.281A Other tear of lateral meniscus, current injury, right knee, initial encounter; K50.90 Crohn's disease, unspecified, without complications; F32.A Depression, unspecified; F41.9 Anxiety disorder, unspecified; K21.9 Gastro-esophageal reflux disease without esophagitis; F90.9 Attention-deficit hyperactivity disorder, unspecified type; M54.9 Dorsalgia, unspecified; G89.29 Other chronic pain; Z90.89 Acquired absence of other organs; Z90.49 Acquired absence of other specified parts of digestive tract; Z98.890 Other specified postprocedural states; Z79.899 Other long term (current) drug therapy; Z88.8 Allergy status to other drugs, medicaments and biological substances; X58.XXXA Exposure to other specified factors, initial encounter
CPT/HCPCS: 29880; 97116; J3010; J1100; J2001; J2405; J2704; J3490; S0020

== ENCOUNTER 2024-05-21 09:00 | Outpatient (CLI) | payer OTHER | END 2024-05-21 09:01 | disposition home or self-care (01) | LOC: CT 09:00 | PROVIDERS: ATTEND Orthopaedic Surgery | DX: M17.11 Unilateral primary osteoarthritis, right knee (principal) ==

== ENCOUNTER 2024-05-21 17:12 | Outpatient (CLI) | payer OTHER ==
[2024-05-21 12:04] LABS: #Basophils 0.05 10x3/uL (0.0-0.2); %Basophils 0.5 % (0.0-1.0); %Eosinophils 2.5 % (0.0-10.0); %Lymphocytes 21.6 % (21.0-51.0); %Monocytes 6.2 % (0.0-10.0); %Neutrophils 68.7 % (42.0-75.0); Hematocrit 40.1 % (36.0-47.0); Hemoglobin 12.5 g/dL (12.0-16.0); Mean Corpuscular HGB CONC 31.2 g/dL (32.0-36.0); Mean Corpuscular Hemoglobin 27.5 pg (27.0-31.0); Mean Corpuscular Volume 88.1 fL (78.0-98.0); Mean Platelet Volume 8.7 fL (7.4-10.4); Platelet Count 316 10x3/uL (130-400); RBC Distribution Width 15.1 % (11.5-14.5); Red Blood Cell (RBC) Count 4.55 mill/uL (4.20-5.40)
[2024-05-21 12:18] LABS: Prothrombin Time 13.6 sec (12.0-14.7)
[2024-05-21 12:20] LABS: Anion Gap 9 mmol/L (10-20); BUN (Urea Nitrogen) 7 mg/dL (9.8-20.1); Calc. Creatinine Clearance 0 mL/min (70-130); Calcium 9.5 mg/dL (7.8-10.44); Carbon Dioxide 29 mmol/L (23-31); Chloride 103 mmol/L (98-107); Estimated GFR 82; Glucose 93 mg/dL (80-115); Potassium 3.9 mmol/L (3.5-5.1); Sodium 137 mmol/L (136-145)
== END 2024-05-21 17:13 | disposition home or self-care (01) ==
LOC: LABBT 17:12
PROVIDERS: ATTEND Orthopaedic Surgery
DX: Z01.818 Encounter for other preprocedural examination (principal); M17.11 Unilateral primary osteoarthritis, right knee
CPT/HCPCS: 80048; 85025; 85610; 87081; 93005; 93010

== ENCOUNTER 2024-05-26 05:52 | Inpatient (IN) | payer OTHER ==
[2024-05-21 10:21] VITALS: BMI 43.4
[2024-05-26] MEDS ORDERED: Vancomycin (BATCH) 1.5 GM/300 ML BAG ONE (06:17)
[2024-05-26] MEDS ORDERED: Sodium Chloride 0.9% 100 ML ONE ×2 (06:17→06:49)
[2024-05-26] MEDS ORDERED: Tranexamic Acid 1,000 MG/10 ML VIAL ONE (06:17)
[2024-05-26] MEDS ORDERED: PROPOFOL 20 ML ONE (06:19)
[2024-05-26] MEDS ORDERED: fentaNYL PF 100 MCG/2 ML SYRINGE ONE ×4 (06:19→10:30)
[2024-05-26] MEDS ORDERED: Midazolam HCl 2 mg/2 ml Vial ONE (06:19)
[2024-05-26] MEDS ORDERED: CEFAZOLIN 2 GM VIAL ONE (06:49)
[2024-05-26] MEDS ORDERED: EPINEPHrine 1 MG/ML VIAL ONE (06:49)
[2024-05-26] MEDS ORDERED: Bupivacaine 0.25% HCL 30 ML VIAL ONE (06:49)
[2024-05-26] MEDS ORDERED: fentaNYL 50 mcg/mL 1 mL Vial SLOW IVP PRN (07:48)
[2024-05-26] MEDS ORDERED: PHENYLEPHRINE-NS 100 MCG/ML 10 ML SYRINGE ONE (07:49)
[2024-05-26] MEDS ORDERED: Ondansetron PF 4 MG/2 ML Vial ONE (07:58)
[2024-05-26] MEDS ORDERED: Metoclopramide HCl 10 MG (2 mL) VIAL ONE (07:58)
[2024-05-26] MEDS ORDERED: Zolpidem Tartrate 5 MG TAB PO PRN ×2 (08:00→09:46)
[2024-05-26] MEDS ORDERED: Promethazine HCl 25 MG/ML VIAL IM PRN (08:00)
[2024-05-26] MEDS ORDERED: Ondansetron PF 4 MG/2 ML Vial IVP PRN (08:00)
[2024-05-26] MEDS ORDERED: traMADol HCl 50 MG TAB PO PRN ×2 (08:00)
[2024-05-26] MEDS ORDERED: HYDROcodone/Acetaminophen 10/325 mg Tablet PO PRN (08:00)
[2024-05-26] MEDS ORDERED: Ropivacaine 0.2% 550 ML 550 ML NERVE BLCK SCH (08:00)
[2024-05-26] MEDS ORDERED: HYDROmorphone 2 MG/ML VIAL ONE (08:06)
[2024-05-26] MEDS ORDERED: Bupivacaine PF 0.5% 30 ML VIAL ONE (08:12)
[2024-05-26] MEDS ORDERED: Ondansetron HCl/PF 4 MG/2 ML Vial IVP PRN (09:35)
[2024-05-26] MEDS ORDERED: Acetaminophen 325 MG TAB PO PRN (09:46)
[2024-05-26] MEDS ORDERED: diphenhydrAMINE 25 MG CAP PO PRN (09:46)
[2024-05-26] MEDS ORDERED: Labetalol HCl 100 MG/20 ML VIAL ONE (10:25)
[2024-05-26] MEDS: Sodium Chloride 0.9% 1,000 ML IV SCH (13:12)
[2024-05-26] MEDS: Ketorolac Tromethamine 30 MG (1 mL) VIAL IVP SCH (13:21)
[2024-05-26] MEDS: Aspirin 81 mg Enteric Coated Tablet PO SCH ×2 (13:22→21:07)
[2024-05-26] MEDS: HYDROcodone/Acetaminophen 10/325 mg Tablet PO PRN (13:24)
[2024-05-26] MEDS: FLU (Fluad Triv) TS24-25 (65UP)/MF59C/PF 45 MCG/0.5 ML Syringe IM ONE (13:26)
[2024-05-26] MEDS ORDERED: hydrALAZINE 25 MG TAB PO PRN (13:43)
[2024-05-26] MEDS: Pantoprazole 40 MG VIAL IVP SCH (14:18)
[2024-05-26] MEDS: Morphine 4 MG/ML VIAL SLOW IVP PRN (14:19)
[2024-05-26] MEDS: CEFAZOLIN 2 GM in Sodium Chloride 0.9% 100 ML IVPB SCH (14:19)
[2024-05-26] MEDS: Mupirocin 2% Ointment 22 GM Tube TOP SCH (21:06)
[2024-05-26] MEDS: Terbinafine 1% Cream 15 GM Tube TOP SCH (21:09)
[2024-05-26] MEDS: Vancomycin (BATCH) 1.5 GM in Premix 1 BAG IVPB SCH (22:10)
[2024-05-27] MEDS: clonazePAM 0.5 MG TAB PO SCH (02:06)
[2024-05-27 05:30] LABS: Hematocrit 34.5 % (36.0-47.0); Hemoglobin 10.9 g/dL (12.0-16.0); Mean Corpuscular HGB CONC 31.6 g/dL (32.0-36.0); Mean Corpuscular Hemoglobin 27.7 pg (27.0-31.0); Mean Corpuscular Volume 87.6 fL (78.0-98.0); Mean Platelet Volume 8.6 fL (7.4-10.4); Platelet Count 299 10x3/uL (130-400); RBC Distribution Width 15.6 % (11.5-14.5); Red Blood Cell (RBC) Count 3.94 mill/uL (4.20-5.40)
[2024-05-27] MEDS ORDERED: Lisinopril 20 MG TAB PO SCH (09:00)
[2024-05-27] MEDS: Doxycycline 100 MG CAP PO SCH (09:45)
[2024-05-27] MEDS: Sulfameth/Trimethoprim DS 800-160mg TAB PO SCH (09:45)
[2024-05-27] MEDS: Ferrous Gluconate 324 MG TAB PO SCH (09:45)
[2024-05-27] MEDS: Aripiprazole 15 MG TAB PO SCH (09:45)
[2024-05-27] MEDS: Lisinopril 20 MG TAB PO SCH (09:46)
[2024-05-27] MEDS: Pantoprazole 40 MG VIAL IVP SCH (09:46)
[2024-05-27] MEDS: Multivitamin W/ Minerals 1 TAB PO SCH (09:46)
[2024-05-27] MEDS: Senokot S 8.6-50 MG TAB PO SCH (09:47)
[2024-05-27] MEDS: Ondansetron PF 4 MG/2 ML Vial IVP PRN (11:21)
[2024-05-27] MEDS: Promethazine HCl 25 MG/ML VIAL IM PRN (14:46)
[2024-05-27] MEDS: Rosuvastatin 20 MG TAB PO SCH (21:52)
[2024-05-28 05:40] LABS: Hematocrit 35.8 % (36.0-47.0); Hemoglobin 11.1 g/dL (12.0-16.0); Mean Corpuscular Hemoglobin 27.7 pg (27.0-31.0); Mean Corpuscular Volume 89.3 fL (78.0-98.0); Mean Platelet Volume 8.7 fL (7.4-10.4); Platelet Count 323 10x3/uL (130-400); RBC Distribution Width 15.7 % (11.5-14.5); Red Blood Cell (RBC) Count 4.01 mill/uL (4.20-5.40)
[2024-05-28] MEDS: BuPROPion XL 150 MG ER.TAB PO SCH (10:17)
[2024-05-28] MEDS: Pantoprazole DR 40 MG TAB PO SCH (10:17)
[2024-05-28 13:01] VITALS: BP 93/61; TEMP 99.3
[2024-05-29] MEDS ORDERED: Lisinopril 20 MG TAB PO SCH (09:00)
== END 2024-05-28 15:43 | disposition home or self-care (01) | DRG 470 ==
LOC: SDC 05:52 → SURG B 12:12 → OBSVTOIN 05-28 13:47
PROVIDERS: ADMIT Orthopaedic Surgery; ATTEND Orthopaedic Surgery
PROC: 0SRC0J9 Replacement of Right Knee Joint with Synthetic Substitute, Cemented, Open Approach (ICD-10-PCS; principal; 2024-05-26)
PROC: 8E0Y0CZ Robotic Assisted Procedure of Lower Extremity, Open Approach (ICD-10-PCS; 2024-05-26)
DX: M17.11 Unilateral primary osteoarthritis, right knee (principal); Z68.41 Body mass index [BMI] 40.0-44.9, adult; I10 Essential (primary) hypertension; E66.9 Obesity, unspecified; Z96.651 Presence of right artificial knee joint; I95.81 Postprocedural hypotension; R53.81 Other malaise; F32.A Depression, unspecified; F41.9 Anxiety disorder, unspecified; G47.00 Insomnia, unspecified; Z98.890 Other specified postprocedural states; Z88.8 Allergy status to other drugs, medicaments and biological substances
CPT/HCPCS: 36415; 85027; 85379; 93005; 93010; A4306; C1713; C1776; C1889; J0171; J0665; J1170; J1885; J2250; J2272; J2405; J2470; J2550; J2704; J2765; J2795; J3370; J7030

== ENCOUNTER 2024-09-07 10:56 | Outpatient (CLI) | payer OTHER | END 2024-09-07 10:57 | disposition home or self-care (01) | LOC: BICCT 10:56 | PROVIDERS: ATTEND Internal Medicine | DX: R91.8 Other nonspecific abnormal finding of lung field (principal); M25.572 Pain in left ankle and joints of left foot; M77.52 Other enthesopathy of left foot and ankle; M19.072 Primary osteoarthritis, left ankle and foot | CPT/HCPCS: 71250 ==

== ENCOUNTER 2025-04-16 13:09 | Emergency (ER) | payer OTHER | END 2025-04-16 14:15 | disposition home or self-care (01) | LOC: ERS 13:09 | DX: S80.01XA Contusion of right knee, initial encounter (principal); I10 Essential (primary) hypertension; W01.0XXA Fall on same level from slipping, tripping and stumbling without subsequent striking against object, initial encounter; Y93.01 Activity, walking, marching and hiking | CPT/HCPCS: 99283 ==

== ENCOUNTER 2025-06-30 12:59 | Outpatient (CLI) | payer OTHER ==
[2025-06-30 14:23] LABS: #Basophils 0.05 10x3/uL (0.0-0.2); #Eosinophils 0.32 10x3/uL (0.0-0.7); #Monocytes 0.92 10x3/uL (0.11-0.59); #Neutrophils 9.77 10x3/uL (1.40-6.50); %Basophils 0.4 % (0.0-1.0); %Eosinophils 2.3 % (0.0-10.0); %Lymphocytes 21.3 % (21.0-51.0); %Monocytes 6.5 % (0.0-10.0); %Neutrophils 69.2 % (42.0-75.0); Hematocrit 42.6 % (36.0-47.0); Hemoglobin 13.3 g/dL (12.0-16.0); Mean Corpuscular Hemoglobin 26.6 pg (27.0-31.0); Mean Corpuscular Volume 85.2 fL (78.0-98.0); Platelet Count 375 10x3/uL (130-400); Red Blood Cell (RBC) Count 5.00 mill/uL (4.20-5.40); White Blood Cell (WBC) Count 14.10 10x3/uL (4.8-10.8)
[2025-06-30 14:37] LABS: INR-International Normal Ratio 0.9; Prothrombin Time 12.4 sec (12.0-14.7)
[2025-06-30 14:58] LABS: ALT (SGPT) 12 U/L (Less than 34); AST (SGOT) 19 U/L (11-34); Albumin 4.2 g/dL (3.1-4.5); Alkaline Phosphatase 116 U/L (40-110); Anion Gap 16 mmol/L (10-20); BUN (Urea Nitrogen) 13 mg/dL (9.8-20.1); Bilirubin, Total 0.3 mg/dL (0.3-1.2); Calc. Creatinine Clearance 0 mL/min (70-130); Calcium 10.0 mg/dL (7.8-10.44); Carbon Dioxide 28 mmol/L (23-31); Chloride 103 mmol/L (98-107); Globulin 3.2 g/dL (2.4-3.5); Glucose 98 mg/dL (80-115); Potassium 3.8 mmol/L (3.5-5.1); Sodium 143 mmol/L (136-145)
== END 2025-06-30 13:00 | disposition home or self-care (01) ==
LOC: LABBT 12:59
PROVIDERS: ATTEND Orthopaedic Surgery
DX: Z01.818 Encounter for other preprocedural examination (principal); M19.011 Primary osteoarthritis, right shoulder
CPT/HCPCS: 80053; 85025; 85610; 87081; 93005; 93010

== ENCOUNTER 2025-07-08 06:31 | Day surgery (SDC) | payer OTHER ==
[2025-06-30 13:43] VITALS: BMI 37.2
[2025-07-08] MEDS ORDERED: Tranexamic Acid 1,000 MG/10 ML VIAL ONE (07:24)
[2025-07-08] MEDS ORDERED: CEFAZOLIN 2 GM VIAL ONE (07:24)
[2025-07-08] MEDS ORDERED: Vancomycin HCl 1.5 GM VIAL ONE (07:24)
[2025-07-08] MEDS ORDERED: Ropivacaine 0.2% 550 ML 550 ML NERVE BLCK SCH (08:30)
[2025-07-08] MEDS ORDERED: Ondansetron PF 4 MG/2 ML Vial IVP PRN (08:30)
[2025-07-08] MEDS ORDERED: fentaNYL PF 100 MCG/2 ML SYRINGE ONE (09:44)
[2025-07-08] MEDS ORDERED: Lidocaine 1% PF 5 ML VIAL ONE (09:45)
[2025-07-08] MEDS ORDERED: Rocuronium Bromide 10 MG/ML (10ML VIAL) ONE (09:45)
[2025-07-08] MEDS ORDERED: Ondansetron PF 4 MG/2 ML Vial ONE (09:45)
[2025-07-08] MEDS ORDERED: PROPOFOL 200 MG/20 ML VIAL ONE (10:11)
[2025-07-08] MEDS ORDERED: Ropivacaine 0.5% HCl/PF (150 MG/30 ML VIAL) ONE (10:29)
[2025-07-08] MEDS ORDERED: SUGAMMADEX SODIUM 200 MG/2 ML VIAL ONE (12:28)
[2025-07-08] MEDS: Ketorolac Tromethamine 30 MG (1 mL) VIAL IVP SCH (14:21)
[2025-07-08] MEDS ORDERED: Bisacodyl 10 MG SUPP PR PRN (14:55)
[2025-07-08] MEDS ORDERED: Milk Of Magnesia 30 ML UDCUP PO PRN (14:55)
[2025-07-08] MEDS ORDERED: Acetaminophen 325 MG TAB PO PRN (14:55)
[2025-07-08] MEDS ORDERED: Dicyclomine 20 MG TAB PO PRN (14:55)
[2025-07-08] MEDS: HYDROcodone/Acetaminophen 10/325 mg Tablet PO PRN ×2 (16:26→21:07)
[2025-07-08] MEDS: Gabapentin 100 MG CAP PO SCH (16:27)
[2025-07-08] MEDS: Rosuvastatin 20 MG TAB PO SCH (20:07)
[2025-07-08] MEDS: Pantoprazole 40 MG DR.TAB PO SCH (20:07)
[2025-07-08] MEDS: Famotidine 20 MG TAB PO SCH (20:08)
[2025-07-08] MEDS: lamoTRIgine 100 MG TAB PO SCH (20:08)
[2025-07-09 04:48] VITALS: TEMP 98.3
[2025-07-09] MEDS: Floranex 1 GM Packet PO SCH (09:12)
[2025-07-09] MEDS: Cyanocobalamin (Vitamin B-12) 1,000 MCG TAB PO SCH (09:13)
[2025-07-09] MEDS: Lisinopril 20 MG TAB PO SCH (09:13)
[2025-07-09] MEDS: Furosemide 20 MG TAB PO SCH (09:14)
[2025-07-09] MEDS: Citalopram 20 MG TAB PO SCH (09:14)
[2025-07-09] MEDS: Aspirin 81 mg Enteric Coated Tablet PO SCH (09:14)
[2025-07-09 10:07] VITALS: BP 115/78
== END 2025-07-09 12:02 | disposition home or self-care (01) ==
LOC: SDC 06:31 → SURG A 14:04 → SDC 07-09 12:02
PROVIDERS: ATTEND Orthopaedic Surgery
PROC: 0RRJ00Z Replacement of Right Shoulder Joint with Reverse Ball and Socket Synthetic Substitute, Open Approach (ICD-10-PCS; principal; 2025-07-08)
PROC: 0LS30ZZ Reposition Right Upper Arm Tendon, Open Approach (ICD-10-PCS; 2025-07-08)
PROC: 3E0T3BZ Introduction of Anesthetic Agent into Peripheral Nerves and Plexi, Percutaneous Approach (ICD-10-PCS; 2025-07-08)
DX: M19.011 Primary osteoarthritis, right shoulder (principal); M19.012 Primary osteoarthritis, left shoulder; M75.21 Bicipital tendinitis, right shoulder; F41.9 Anxiety disorder, unspecified; F32.A Depression, unspecified; K21.9 Gastro-esophageal reflux disease without esophagitis; Z96.651 Presence of right artificial knee joint; Z90.89 Acquired absence of other organs; Z90.710 Acquired absence of both cervix and uterus; Z90.49 Acquired absence of other specified parts of digestive tract; Z88.1 Allergy status to other antibiotic agents; Z79.899 Other long term (current) drug therapy
CPT/HCPCS: 23430; 23472; 64416; 73030; 97110; 97116; 97535; A4306; C1713 ×5; C1776 ×4; J1100; J1885 ×2; J2250; J2405; J2704; J2795 ×2; J3010; J7030